=== PATIENT | female | born 1955 | race Caucasian/White ===

== ENCOUNTER → 2018-01-11 09:38 | Outpatient (CLI) | payer BC, SELFPAY ==
--- NOTE | 2018-01-11 09:46 | XR_ITS ---
XR DEXA axial skeleton HISTORY: ITS.REASON: POST MENOPAUSAL ORDERING PHYSICIAN: Jenise Kurtz MD PATIENT AGE: 62 years COMPARISON: None FINDINGS: The BMD measured at the Right femoral neck is 0.944 g/cm squared with a T score of -0.7 . This is considered Normal according to the World Health Organization criteria. Fracture risk is Low. The L1-L4 density has a T score of 0.0.. IMPRESSION: Normal bone density. Recommend follow-up exam January 2020
--- NOTE | 2018-01-11 09:47 | MM_ITS ---
MM Dig screening mamm BI w/CAD CAD Screening ORDERING PHYSICIAN : Jenise Kurtz MD PATIENT AGE: 62 years GENDER: Female COMPARISON: [facility] mamm[facility] 2010 & December 2015 INDICATION: Routine screening previous benign excisional biopsy left breast TECHNIQUE: Standard CC and MLO images were obtained. R2 CAD reviewed. FINDINGS: Low-density breast bilaterally with no dominant mass nor suspicious calcifications of concern. No new areas of significant concern.. No mass lesion There are some small spherical rim thin calcification bilaterally towards inferior breast reflecting oil Cyst.. Stable since 2016 No suspicious calcification.. Small grouping of small calcifications at the medial left breast seen 2016 is less evident today. No Bilateral follow-up in one year adequate IMPRESSION: No areas of significant concern. Benign-appearing features bilaterally can be followed in one year BI-RADS Category: 2 Benign Finding(s) RECOMMENDED FOLLOW-UP: 1YR - 1 YEAR FOLLOW-UP. (A letter has been sent to the patient regarding results of the study.) .
== END ==
PROVIDERS: Family Provider Family Medicine; PCP Family Medicine; Visit Provider Family Medicine
DX: Z12.31 Encounter for screening mammogram for malignant neoplasm of breast (principal); Z13.820 Encounter for screening for osteoporosis; Z78.0 Asymptomatic menopausal state
CPT/HCPCS: 77067; 77080

== ENCOUNTER → 2018-07-27 12:41 | Outpatient (CLI) | payer BC, SELFPAY ==
[2018-07-27 16:24] LABS: Ferritin 111 ng/mL (8-388)
== END ==
PROVIDERS: Visit Provider Specialist
DX: G25.81 Restless legs syndrome (principal); G47.33 Obstructive sleep apnea (adult) (pediatric)
CPT/HCPCS: 36415; 82728

== ENCOUNTER → 2019-03-27 09:25 | Outpatient (CLI) | payer BC, SELFPAY ==
--- NOTE | 2019-03-27 09:28 | MM_ITS ---
PROCEDURE: MM DIG SCREENING MAMM BI W/CAD CLINICAL INDICATION: Routine screening mammogram. 63-year-old No hormones, no new complaints. Prior benign right lumpectomy Family history unremarkable COMPARISON: DIG MAMMO DIAGNOSTIC [facility]IA ALEJANDRA from 05/07/2010 [facility] MAMMO SCRN DIGITL BILAT from 12/18/2015 [facility] MM Dig screening mamm BI w/CAD from 01/11/2018 TECHNIQUE: Standard CC and MLO images were obtained. R2 CAD reviewed. Additional nipple profile CC views bilateral FINDINGS: Minimal residual fibroglandular elements with no new dominant or suspicious mass. Stable pattern bilateral, with no new areas of concern in either breast No suspicious calcifications. Benign round spherical calcification medial inferior breast again noted likely small oil cyst feature IMPRESSION: Stable bilateral mammogram. Bilateral follow-up 1 year recommended BI-RAD Category: 2 Benign Finding(s) FOLLOW-UP: 1YR 1 Year Follow-up (A letter has been sent to the patient regarding results of the study.) Dictated by: Sandro Harry MD 03/27/2019 11:50 Signed by: <Electronically signed by Sandro Harry MD in [place]> 03/27/2019 11:50
== END ==
PROVIDERS: PCP Family Medicine; Visit Provider Emergency Medicine
DX: Z12.31 Encounter for screening mammogram for malignant neoplasm of breast (principal)
CPT/HCPCS: 77067

== ENCOUNTER → 2019-10-07 13:25 | Outpatient (CLI) | payer BC, SELFPAY ==
[2019-10-07 15:08] VITALS: BMI 45.3
== END ==
PROVIDERS: PCP Family Medicine; Visit Provider Family Medicine
DX: Z71.3 Dietary counseling and surveillance (principal); E11.9 Type 2 diabetes mellitus without complications
CPT/HCPCS: 97802

== ENCOUNTER 2020-10-23 07:06 | Emergency (ER) | payer BC, SELFPAY ==
[2020-10-23] VITALS (11 sets, daily range): BP systolic 145–186; BP diastolic 70–101; PULSE 81–100; RESP 13–18; TEMP 36.6–36.7; O2SAT 91–98; BMI 44.2
--- NOTE | 2020-10-23 07:15 | PC.NURSE ---
FSBS 160 upon arrival.
[2020-10-23 07:20] LABS: POC Glucose,Bedside 160 (70-110)
--- NOTE | 2020-10-23 07:31 | CT_ITS ---
PROCEDURE: CT HEAD/BRAIN WO CON CLINICAL INDICATION: rt side facial droop COMPARISON: No exams were available for comparison TECHNIQUE: Axial images obtained. All CT scans at the facility use one or more dose reduction, viz: automated exposure control, ma/kV adjustment per patient size (including targeted exams where dose is matched to indication, i.e. head), or iterative reconstruction technique. FINDINGS: No midline shift, mass effect, intracranial hemorrhage, hydrocephalus, or extra-axial fluid collection is evident. The calvarium has an unremarkable appearance. No mastoid effusion. No sinus air-fluid level. IMPRESSION: No acute intracranial finding Dictated by: Rickey Christy MD 10/23/2020 08:57 Rickey Christy MD in [place] 10/23/2020 08:57
[2020-10-23 07:47] LABS: Alanine Aminotransferase 17 U/L (12-78); Albumin/Globulin Ratio 1.3 (1.1-1.8); Alkaline Phosphatase 76 U/L (38-126); Anion Gap 15.1 mEq/L (5-15); Aspartate Amino Transferase 31 U/L (14-36); Bilirubin,Total 0.3 mg/dl (0.2-1.3); Blood Urea Nitrogen 20 mg/dl (7-17); Calcium 9.8 mg/dl (8.4-10.2); Carbon Dioxide 29 mmol/L (22.0-30.0); Chloride 102 mmol/L (98-107); Creatinine Clearance Estimated 48 mL/min (50-200); Estimated Glomerular Filt Rate 72 ml/min (>60); GFR (African American) 88 ML/MIN (>60); Globulin 3.9 g/dL (1.3-3.2); Glucose 169 mg/dl (74-100); Potassium 4.1 mmoL/L (3.5-5.1); Sodium 142 mmol/L (136-145); Total Protein,Serum 8.9 g/dl (6.3-8.2)
--- NOTE | 2020-10-23 07:51 | PC.NURSE ---
rohan CALLING AT THIS TIME FOR HEAD CT RESULTS
--- NOTE | 2020-10-23 07:55 | PC.NURSE ---
Requested urine sample from pt. Pt states she just went on the way in and doesn't have to go at this time. Advised pt to let us know when she feels the urge to urinate.
[2020-10-23 08:01] LABS: Basophils # 0.1 K/mm3 (0-0.2); Basophils % 1.1 % (0.1-2.0); Eosinophils # 0.4 K/mm3 (0.0-0.4); Eosinophils % 4.9 % (0.1-12.0); Hematocrit 41.7 % (37.0-47.0); Hemoglobin 13.6 g/dL (12.2-16.2); Lymphocytes # 2.5 K/mm3 (0.7-4.5); Lymphocytes % 28.3 % (10-50); Mean Corpuscular HGB Conc 32.5 g/dL (31.8-35.4); Mean Corpuscular Hemoglobin 28.7 pg (27.0-31.2); Mean Corpuscular Volume 88.2 fl (81-99); Mean Platelet Volume 7.4 fl (7.4-10.4); Monocytes # 0.4 K/mm3 (0.1-1.0); Neutrophils # 5.3 K/mm3 (1.8-7.8); Neutrophils % 60.8 % (37.0-80.0); Platelet Count 303 K/mm3 (142-424); Red Blood Count 4.73 M/mm3 (4.20-5.40); Red Cell Distribution Width 13.4 % (11.5-17.5); White Blood Count 8.8 K/mm3 (4.8-10.8)
--- NOTE | 2020-10-23 08:22 | HMH.EDGENADL ---
ED Disposition Clinical Impression: Childers's palsy Disposition: Home, Self-Care Condition on Discharge: Good Instructions: DI for [place] Palsy Prescriptions: predniSONE [Prednisone 50mg Tab] 50 mg PO DAILY 7 Days #7 tab predniSONE [Prednisone 50mg Tab] 50 mg PO DAILY 7 Days #7 tab Transmission Status: Pending to [facility] Referrals: Jenise Kurtz MD [Primary Care Provider] - - Critical Care Critical Care Time: No Attestation: On 10/23/20, the high probability of a clinically significant, sudden or life threatening deterioration of the following system(s) required my full and direct attention, intervention and personal management. The time I documented below is in addition to time spent performing reported procedures but includes the following listed in this critical care notation. Medical Decision Making - Medical Records Medical records reviewed: Yes: I reviewed the patient's medical records. - Lloyd Inquiry Pt receiving controlled substance: No Vital Signs: 10/23/20 07:06 10/23/20 07:17 10/23/20 07:23 Temperature 98 F Temperature Source Oral Pulse Rate 94 H 93 H Pulse Rate [Radial] 100 H Respiratory Rate 16 18 17 Blood Pressure 147/70 H Blood Pressure [Right Arm] 186/101 H Blood Pressure Mean 95 Blood Pressure Mean [Right Arm] 129 Blood Pressure Position [Right Arm] Sitting 02 Sat by Pulse Oximetry 98 95 93 L Oxygen Delivery Method Room Air 10/23/20 07:30 10/23/20 07:31 10/23/20 08:03 Temperature Temperature Source Pulse Rate 90 89 81 Pulse Rate [Radial] Respiratory Rate 16 18 18 Blood Pressure 150/72 H 145/82 H Blood Pressure [Right Arm] Blood Pressure Mean 89 103 Blood Pressure Mean [Right Arm] Blood Pressure Position [Right Arm] 02 Sat by Pulse Oximetry 93 L 95 94 L Oxygen Delivery Method 10/23/20 08:15 10/23/20 08:30 10/23/20 08:32 Temperature Temperature Source Pulse Rate 90 88 Pulse Rate [Radial] Respiratory Rate 14 16 15 Blood Pressure 163/74 H Blood Pressure [Right Arm] Blood Pressure Mean 101 Blood Pressure Mean [Right Arm] Blood Pressure Position [Right Arm] 02 Sat by Pulse Oximetry 95 91 L Oxygen Delivery Method 10/23/20 08:45 Temperature Temperature Source Pulse Rate 83 Pulse Rate [Radial] Respiratory Rate 16 Blood Pressure Blood Pressure [Right Arm] Blood Pressure Mean Blood Pressure Mean [Right Arm] Blood Pressure Position [Right Arm] 02 Sat by Pulse Oximetry 94 L Oxygen Delivery Method - Lab Data Lab Results 10/23/20 07:13: POC Glucose 160 H 10/23/20 07:16: WBC 8.8, RBC 4.73, Hgb 13.6, Hct 41.7, MCV 88.2, MCH 28.7, MCHC 32.5, RDW 13.4, Plt Count 303, MPV 7.4, Neut % (Auto) 60.8, Lymph % (Auto) 28.3, [place] % (Auto) 5.0, Eos % (Auto) 4.9, Baso % (Auto) 1.1, Neut # (Auto) 5.3, Lymph # (Auto) 2.5, [place] # (Auto) 0.4, Eos # (Auto) 0.4, Baso # (Auto) 0.1 10/23/20 07:16: Sodium 142, Potassium 4.1, Chloride 102, Carbon Dioxide 29, Anion Gap 15.1 H, BUN 20 H, Creatinine 0.80, Estimated Creat Clear 48, Estimated GFR 72, Est GFR ( Amer) 88, Glucose 169 H, Calcium 9.8, Total Bilirubin 0.3, AST 31, ALT 17, Alkaline Phosphatase 76, Total Protein 8.9 H, Albumin 5.0, Globulin 3.9 H, Albumin/Globulin Ratio 1.3 10/23/20 07:16: ESR 16 Result diagrams: 10/23/20 07:16 10/23/20 07:16 Medical Decision Narrative: 65-year-old female with evidence of Childers's palsy on exam. She is able to close her eyelid however it is limited and she has had tearing. No evidence of meningitis, otitis media, viral rash or any other obvious etiology. She did receive the Moderna COVID-19 shot a few weeks ago and this will need to be reported. CT scan obtained prior to my arrival CT scan shows no evidence of stroke and laboratory evaluation was not emergent. We discussed with infectious disease they will call the patient back with official recommendations however recommend not getting second M
[2020-10-23 08:33] LABS: Erythrocyte Sedimentation Rate 16 mm/hr (0-30)
--- NOTE | 2020-10-23 08:41 | PC.NURSE ---
PT STATES SHE RECEIVED 1ST MODERNA VACCINE 10/07/20 AND HER 2ND SCHEDULED 11/04/20. HARRISON FERRIS RN, HOUSE SUPER. CALLED REGARDING POSSIBLE REPORTING REQUIRERMENTS
== END 2020-10-23 09:21 | disposition home or self-care (01) ==
PROVIDERS: Emergency Provider Emergency Medicine; PCP Family Medicine
DX: G51.0 Bell's palsy (principal); E10.9 Type 1 diabetes mellitus without complications; E78.5 Hyperlipidemia, unspecified; K21.9 Gastro-esophageal reflux disease without esophagitis; Z79.899 Other long term (current) drug therapy
CPT/HCPCS: 70450; 80053; 82962; 85025; 85651; 99283

== ENCOUNTER → 2021-08-25 15:42 | Outpatient (CLI) | payer BC, SELFPAY | PROVIDERS: Visit Provider Nurse Practitioner | DX: Z20.822 Contact with and (suspected) exposure to COVID-19 (principal) | CPT/HCPCS: C9803; U0003; U0005 ==

== ENCOUNTER → 2021-09-23 13:44 | Outpatient (CLI) | payer BC, SELFPAY | PROVIDERS: PCP Family Medicine; Visit Provider Family Medicine | DX: R55 Syncope and collapse (principal) | CPT/HCPCS: 93225; 93226 ==

== ENCOUNTER → 2021-09-28 09:14 | Outpatient (CLI) | payer BC, SELFPAY ==
--- NOTE | 2021-09-28 09:17 | XR_ITS ---
FINAL REPORT TECHNIQUE: Bone densitometry calculations of the lumbar spine and left hip were obtained. CLINICAL HISTORY: . osteopenia FINDINGS: Using L1-4, the bone mineral density of the spine is 0.995 g/cm2, corresponding to T-score of -0.5. Using the left hip, the bone mineral density of the femoral neck is 0.741 g/cm2, corresponding to a T-score of -1.0. NOTE: T-score: Standard deviation compared with peak bone mass of young adult mean. *Following the recommendations of the International Society of Bone densitometry, classification of hip BMD is based on the lower of two T-scores; total hip or femoral neck. IMPRESSION: Findings consistent with borderline osteopenia. FRAX data shows 21% major osteoporotic fracture and 0.8% hip fracture. Reviewed, Interpreted and Dictated by Eder Gordon MD Transcribed by Arlene Valencia Authenticated by Eder Gordon MD on 09/28/2021 01:31:44 PM [facility]
== END ==
PROVIDERS: PCP Family Medicine; Visit Provider Family Medicine
DX: M85.89 Other specified disorders of bone density and structure, multiple sites (principal)
CPT/HCPCS: 77080; Q9967

== ENCOUNTER → 2021-12-24 15:37 | Outpatient (CLI) | payer BC, SELFPAY ==
--- NOTE | 2021-12-24 15:41 | MM_ITS ---
PROCEDURE INFORMATION: Exam: MG Bilateral Screening 3D Mammography Exam date and time: 12/24/2021 3:43 PM Age: 66 years old Clinical indication: Screening examination. History of benign left excisional biopsy. No family history of breast cancer. TECHNIQUE: Imaging protocol: Bilateral Screening tomosynthesis and 2D mammography including computer-aided detection (CAD) when performed. COMPARISON: 1. MG MM DIG SCREENING MAMM BI W/CAD 03/27/2019 9:38 AM 2. MG [facility] MM Dig screening mamm BI w/CAD 01/11/2018 9:54 AM 3. MG MA MAMMO SCRN DIGITL BILAT 12/18/2015 9:11 AM FINDINGS: MAMMOGRAPHY: Breast composition: There are scattered areas of fibroglandular density. Mass: None. Architectural distortion: None. Calcifications: No suspicious calcifications. Asymmetric density: None. Skin thickening: None. Axillary adenopathy: None. IMPRESSION: No mammographic evidence of malignancy. Annual screening is recommended unless otherwise clinically indicated. ASSESSMENT: BI-RADS Category 1: Negative
== END ==
PROVIDERS: PCP Family Medicine; Visit Provider Family Medicine
DX: Z12.31 Encounter for screening mammogram for malignant neoplasm of breast (principal); N60.19 Diffuse cystic mastopathy of unspecified breast
CPT/HCPCS: 77063; 77067

== ENCOUNTER → 2022-03-11 07:18 | Outpatient (CLI) | payer BC, SELFPAY ==
--- NOTE | 2022-03-11 | CA_ITS ---
APPROVED REPORT Exam: Exercise Treadmill Technologist: Zainab Arreola, Ht: 5 ft 3 in Wt: 241 lbs BSA: 2.09 m2 HR: 89 bpm BP: 116/59 mmHg Medical History Medications: Aspirin,,,,, Metoprolol,,,,, Metformin,,,,, Esomeprazole,,,,, Carbidopa-levadopa,,,,, RoSUVASTATIN,,,,, GlimepERIDE,,,,, Lisinopril-HCTZ,,,,, Stress Test Details Test: Edgar HR Resting HR: 97 bpm Max Heart Rate (APMHR): 156.459891 bpm Max HR Achieved: 161 bpm Target HR (85% APMHR): 132.043072 bpm % of APMHR: 103.21 Recovery HR: 105 bpm BP Resting BP: 142/68 mmHg Max BP: 182/78 mmHg Recovery BP: 138.0/50.0 mmHg ECG Resting ECG: SR Clinical Exercise duration: 05:00 min Highest Stage Achieved: Exercise capacity: 7.0 METs Stress ECG Conclusion Symptoms: SOA w/ exercise. No chest pain. Arrhythmias/Ectopy: PVCs, ventricular couplet. ST-T Changes: <1.5mm ST Segment changes. Test Summary REST . . . . . . . Sitting REST . . . . . . . Standing REST 11:37 0.0 0.0 97 . 142/ 68 . . Stage 1 01:00 10.0 1.7 111 . . . . Stage 1 02:00 10.0 1.7 125 . . . . Stage 1 03:00 10.0 1.7 133 . 182/ 78 . . Stage 2 01:00 12.0 2.5 149 . . . . Stage 2 02:00 12.0 2.5 153 . . . Stop exercise at 05:00 RECOVERY 01:00 0.0 0.0 140 . . . . RECOVERY 02:00 0.0 0.0 120 . . . . RECOVERY 03:00 0.0 0.0 115 . 167/ 70 . . RECOVERY 04:00 0.0 0.0 107 . 167/ 70 . . RECOVERY 04:35 0.0 0.0 105 . 138/ 50 . . Electronically signed by : Shivam Golden MD 03/11/2022 11:45:12
--- NOTE | 2022-03-11 | NM_ITS ---
APPROVED REPORT Exam: Nuclear Stress Test Indication: HTN, DM, HYPERLIPIDEMIA, FM HX, C.P., SOB, PALPITATIONS, SYNCOPE, FATIGUE Patient Location: Outpatient Stress Tech: Zainab Whaley NE Tech:Jazz Goel, ARRT RT (R)(N)(M) Ht: 5 ft 3 in Wt: 241 lbs Bra Size: 42C HR: 89 bpm BP: 116/59 mmHg BSA: 2.09 m2 TID: 1.86 BMI: 42.6 History: HTN, DM, HYPERLIPIDEMIA, FM HX, C.P., SOB, PALPITATIONS, SYNCOPE, FATIGUE Procedure: Patient exercised on Edgar protocol 5:00 minutes and sec, resting heart rate 89 bpm, resting blood pressure 116/59 mmHg, with exercise maximum heart rate achived was 161 bpm which is 103 % of the maximum predicted heart rate and blood pressure was 182/78 mmHg. Test was stopped due to fatigue. Patient denied any complaint of chest pain. Patient has Adequate exercise capacity, achieved 7.0 METs of workload on treadmill, the blood pressure response to exercise was Adequate. Electrocardiogram Resting electrocardiogram shows sinus rhythm, with exercise there is less than 1.[address] segment depression noted from the baseline EKG. The EKG portion of the exercise Myoview is negative for ischemia. Cardiac Stress and Resting SPECT Images: Cardiac Stress and Resting SPECT images were obtained using technetium 99m Myoview 29.8 mCi stress and 10.61 mCi at rest. Gated SPECT analysis of segmental wall motion and calculation of the ejection fraction also done. Cardiac stress and rest SPECT images show uniform myocardial activity without segmental perfusion abnormality, computer derived ejection fraction is over 65% with no regional wall motion abnormality, right ventricle is normal size and contractility. Conclusion: 1. The EKG portion of the exercise Myoview is negative for ischemia, patient has adequate exercise capacity achieved 7 METS of workload on treadmill, the blood pressure response to exercise was adequate, there was no exercise-induced chest discomfort. 2. No scintigraphic evidence of reversible ischemia seen, computer derived ejection fraction is over 65% with no regional wall motion abnormality, right ventricle is normal size and contractility. 3. Normal exercise Myoview study. Electronically signed by : Shivam Golden MD 03/11/2022 11:47:24
== END ==
PROVIDERS: PCP Family Medicine; Visit Provider Family Medicine
DX: I47.1 Supraventricular tachycardia (principal); R06.02 Shortness of breath
CPT/HCPCS: 78452; 93017; A9502

== ENCOUNTER 2022-10-26 09:48 | Day surgery (SDC) | payer BC, MEDICARE, SELFPAY ==
[2022-10-13 13:13] VITALS: BMI 41.6
[2022-10-26 10:12] VITALS: BP 141/82; PULSE 108; RESP 18; TEMP 36.1; O2SAT 97
[2022-10-26 10:19] LABS: POC Glucose,Bedside 131 (70-110)
--- NOTE | 2022-10-26 10:50 | P.PN_ITS ---
[facility] Disclaimer: The information contained in this section may have been updated after the patient was seen, as this information can be updated by other users. Medical History Diabetes mellitus, type 2 History of gastroesophageal reflux (GERD) Hyperlipidemia Hypertension Surgical History History of section History of colonoscopy History of lumpectomy of left breast History of tonsillectomy Family History Other Family history of Alzheimer's disease Family history of cancer Family history of diabetes mellitus type II Family history of hypertension Family history of hypothyroidism Family history of stroke Lung cancer Social History Smoking Status: Never smoker alcohol intake: never substance use type: denies use current occupational status: employed Travel in the last 8 weeks: None household members: family housing: house marital status: caffeine: Yes special watson needs: No agree to transfusion: No do you feel safe at home: Yes victim of physical abuse: No victim of emotional abuse: No victim of sexual abuse: No would you like helpful sources: No [facility] Anesthesia Checklist Patient Identification Patient Identification: Arm Band and Verbal (Name & ) Structural Data Admitted From: Home Planned Operative Procedure/s: Colonoscopy Consent for Planned Operative Procedure(s) Verified: Yes NPO Status Verified Time NPO: 00:00 Airway Assessment C-Spine Mobility Assessed: Yes TMJ Mobility Assessed: Yes Dentition: Good Dentition Neurological Assessment Level of Consciousness: Awake Hx Seizures: No Numbness or tingling in extremities: No Anesthesia Plan Anesthesia Risk discussed: Yes Anesthesia Plan: Verified ASA Class: III Anesthesia Type: MAC
[2022-10-26 11:00] VITALS: O2SAT 97
--- NOTE | 2022-10-26 11:21 | HMH.SCOPE ---
Procedure: Date: 10/26/22 Patient Date of :: 1955 Procedure Performed:: Colonoscopy Indications:: 67 year old presents for colonoscopy for finding of positive cologuard test. Patient reports last colonoscopy greater than 10 years. No family history of colon cancer. Performing Provider:: Inderjit Wu MD Referring Provider:: Rolando Kurtz MD Sedation:: See RN records Procedure:: After placing the patient in the left lateral decubitus position, the colonoscopy was gently inserted into the rectum and under direct visualization advanced to the cecum which was identified by transillumination in the right lower quadrant, identification of the ileocecal valve, appendiceal orifice, and cecal strap. Color, texture, mucosa, and anatomy of the colon were carefully examined with the scope. Findings:: Anal canal: normal Rectum: normal Sigmoid colon: normal without polyps or inflammatory changes Descending colon: normal without polyps or inflammatory changes Splenic flexure: normal Transverse colon: normal without polyps or inflammatory changes Hepatic flexure: normal Ascending colon: normal without polyps or inflammatory changes Cecum: normal Terminal ileum: not visualized Recommendations:: Repeat colonoscopy in 10 years or sooner if clinically indicated Complications:: none Estimated blood obtained (mL): 0
[2022-10-26 11:22] VITALS: BP 120/64; PULSE 94; RESP 14; TEMP 37; O2SAT 95
[2022-10-26 11:32] VITALS: BP 105/53; PULSE 87; RESP 15; TEMP 37; O2SAT 98
[2022-10-26 11:42] VITALS: BP 130/76; PULSE 90; RESP 17; O2SAT 93
[2022-10-26 11:52] VITALS: BP 128/76; PULSE 83; RESP 17; O2SAT 100
== END 2022-10-26 12:20 | disposition home or self-care (01) ==
PROVIDERS: PCP Family Medicine; Visit Provider Internal Medicine
PROC: 0DJD8ZZ Inspection of Lower Intestinal Tract, Via Natural or Artificial Opening Endoscopic (ICD-10-PCS; CPT 45378; principal; 2022-10-26 11:00)
DX: R19.5 Other fecal abnormalities (principal); E11.9 Type 2 diabetes mellitus without complications; Z79.899 Other long term (current) drug therapy
CPT/HCPCS: 45378; 82962; J2704

== ENCOUNTER → 2023-05-22 07:21 | Outpatient (CLI) | payer BC, SELFPAY ==
--- NOTE | 2023-05-22 07:30 | MM_ITS ---
PROCEDURE INFORMATION: Exam: MG Bilateral Screening 3D Mammography Exam date and time: 05/22/2023 7:29 AM Age: 67 years old Clinical indication: Screening examination TECHNIQUE: Imaging protocol: Bilateral Screening tomosynthesis and 2D mammography including computer-aided detection (CAD) when performed. COMPARISON: 1. MG MM DIG SCREENING MAMM BI W/CAD 12/24/2021 3:43 PM 2. MG MM DIG SCREENING MAMM BI W/CAD 03/27/2019 9:38 AM FINDINGS: MAMMOGRAPHY: Breast composition: There are scattered areas of fibroglandular density. Mass: None. Architectural distortion: None. Calcifications: No suspicious calcifications. Asymmetric density: None. Skin thickening: None. Axillary adenopathy: None. IMPRESSION: No mammographic evidence of malignancy. Annual screening is recommended unless otherwise clinically indicated. ASSESSMENT: BI-RADS Category 1: Negative
== END ==
PROVIDERS: PCP Family Medicine; Visit Provider Family Medicine
DX: Z12.31 Encounter for screening mammogram for malignant neoplasm of breast (principal)
CPT/HCPCS: 77063; 77067